=== PATIENT | female | born 1950 | race Caucasian/White ===

== ENCOUNTER → 2016-05-15 | Outpatient (CLI) | payer BC | END | disposition home or self-care (01) | LOC: C.PAPS 14:24 | PROVIDERS: ATTEND Internal Medicine | DX: Z01.419 Encounter for gynecological examination (general) (routine) without abnormal findings (principal); N72 Inflammatory disease of cervix uteri ==

== ENCOUNTER → 2016-09-08 | Outpatient (CLI) | payer BC ==
[2016-09-08 10:25] LABS: ESTIMATED AVERAGE GLUCOSE 114 mg/dl; HA1C FLAG Normal (Normal)
[2016-09-08 10:30] LABS: ALT/SGPT 21 U/L (12-78); AST/SGOT 12 U/L (15-37); BLOOD UREA NITROGEN 17 mg/dl (7-18); CALCIUM 8.6 mg/dl (8.5-10.1); CARBON DIOXIDE 27 mmol/L (21-32); CHLORIDE 110 mmol/L (98-107); CREATININE 0.71 mg/dl (0.60-1.20); GLUCOSE 101 mg/dl (70-99); POTASSIUM 3.9 mmol/L (3.5-5.1); SODIUM 143 mmol/L (136-145)
[2016-09-08 10:41] LABS: ALB/GLOB RATIO 1.3 (0.9-2); ALKALINE PHOSPHATASE 83 U/L (45-117); CHOLESTEROL 163 mg/dl (0-200); CHOLESTEROL/HDL RATIO 2.7; HDL CHOLESTEROL 61 mg/dl; LDL CHOLESTEROL CALCULATED 89 mg/dl; TRIGLYCERIDES 65 mg/dl (0-150); VERY LOW DENSITY LIPOPROT CALC 13 mg/dl
[2016-09-08 11:08] LABS: RATIO 7.2 mcg/mg (0-30.0)
== END | disposition home or self-care (01) ==
LOC: C.LAB1850 08:54
PROVIDERS: ATTEND Internal Medicine
DX: E11.9 Type 2 diabetes mellitus without complications (principal); R09.1 Pleurisy

== ENCOUNTER → 2017-03-15 | Outpatient (CLI) | payer BC ==
[2017-03-15 12:23] LABS: ALT/SGPT 22 U/L (12-78); AST/SGOT 18 U/L (15-37); BLOOD UREA NITROGEN 18 mg/dl (7-18); BUN/CREATININE RATIO 21.6 (10-20); CALCIUM 9.2 mg/dl (8.5-10.1); CARBON DIOXIDE 29 mmol/L (21-32); CHLORIDE 103 mmol/L (98-107); CREATININE 0.84 mg/dl (0.60-1.20); GLUCOSE 87 mg/dl (70-99); POTASSIUM 3.7 mmol/L (3.5-5.1); SODIUM 140 mmol/L (136-145)
[2017-03-15 12:25] LABS: ALB/GLOB RATIO 1.2 (0.9-2); ALKALINE PHOSPHATASE 76 U/L (45-117)
[2017-03-15 12:41] LABS: ESTIMATED AVERAGE GLUCOSE 114 mg/dl; HA1C FLAG Normal (Normal)
[2017-03-15 13:47] LABS: CREATININE RANDOM URINE 69.7 mg/dl
[2017-03-15 13:59] LABS: RATIO 7.5 mcg/mg (0-30.0)
== END | disposition home or self-care (01) ==
LOC: C.LAB1850 11:00
PROVIDERS: ATTEND Internal Medicine
DX: E11.9 Type 2 diabetes mellitus without complications (principal)

== ENCOUNTER → 2017-06-01 | Outpatient (CLI) | payer OTHER | END | disposition home or self-care (01) | LOC: C.MAMM 11:13 | PROVIDERS: ATTEND Internal Medicine | DX: Z00.00 Encounter for general adult medical examination without abnormal findings (principal); Z13.820 Encounter for screening for osteoporosis; M85.88 Other specified disorders of bone density and structure, other site; M85.852 Other specified disorders of bone density and structure, left thigh; M85.851 Other specified disorders of bone density and structure, right thigh ==

== ENCOUNTER 2018-06-01 02:52 | Inpatient (IN) ==
[2018-06-01] MEDS ORDERED: ASPIRIN CHEW 324 MG PO STA (03:07)
[2018-06-01] MEDS ORDERED: NITROGLYCERIN SL 0.4 MG/TAB TAB SL STA ×3 (03:07→03:53)
--- NOTE | 2018-06-01 03:12 | Emergency Department Note ---
ED Provider Note Name: Maria Farfan Age: 68F Arrives Via: POV Informant: Pt, CC: Chest pain HPI: 68 female arrives for evaluation of chest pain. Awoke from sleep with left sided pain. Radiates to left neck and shoulderblade. Pressure in nature. Mild associated shob. No palpitations, nausea, vomiting, syncope. No previous pain like this. Pain waxing/waning. Nothing makes better nor worse. No medications prior to arrival. History of DMII with well controlled BSG. No history HTN, DLP, CAD, nor other medical issues. No previous cardiac work-up. No fam history of CAD. Father with PEs in past. Patient with travel a few weeks ago. No leg swelling, abdominal pain, calf pain, back pain, urianry symptoms, weakness, headache, rashes, fevers, chills, nor other symptoms ROS: See above HPI for pertinent positives & negatives. A total of 10 systems reviewed and were otherwise negative. Past Medical History: DMII Past Surgical History: Tubal Ligation, Csection, Finger surgeries Family History: Father with PEs Social History: , Retired, Daily glass of wine, no drug, no tobacco Home Medications: Metformin Allergies NKDA Physical: Vitals: 167/94, P 92, R 20, T 37.0, O2 98% Exam: GENERAL: Patient is Anxious appearing and in no acute distress. EYES: No scleral icterus, unremarkable pupils. ENT: Mucous membranes moist, no nasal congestion. NECK: No masses appreciated, no meningismus, trachea is midline. RESPIRATORY: No dyspnea. Clear to auscultation and equal bilaterally. No wheeze , no rhonchi. CARDIOVASCULAR: Regular rate and rhythm. No murmurs, rubs, gallops appreciated. GASTROINTESTINAL: Abdomen soft, non-tender, no peritonitis. Bowel sounds positive. No masses appreciated. BACK: No midline tenderness, no CVA tenderness EXTREMITIES: Normal motion all extremities, no cyanosis, no edema. NEUROLOGIC: Alert and oriented, no acute motor or sensory deficits, no focal weakness, cranial nerves grossly intact. SKIN: No rash, no jaundice, no diaphoresis. ED Course: Prior Medical Record, Triage/Nursing Notes, Medications, Allergies reviewed by Me Vital Signs: reviewed and remarkable for HTN Labs: Reviewed and remarkable for mild dimer elevation Interventions: Saline Lock, Asa 324mg PO, SLNTG x 3, Nitro Paste Imaging: X ray results are stated below per my interpretation: Chest: 1 view: No infiltrate, no effusion, normal cardiac border. CT Chest: multiple granulomas throughout, no PE, no dissection per Stat Rad EKG: Per My Interpretation: #1 02:59:NSR [id number], lateral ST depressions, no ectopy, no previous for comparison #2 03:26 NSR 82 bpm no ectopy no sichemia, resolution of lateral st depressions compared to earlier ekg Consults: Dr Singleton [facility]ist Reassessments/Times: Multiple times, gradually resolution of chest pain Blood pressure: Elevated - Referred to hospitalist Disposition: Hospitalization Differentials: ACS, Arrythmia, PE, dissection, pneumothorax, pneumonia, esophageal/gerd, amongst other pathologies. Medical Decision Makin yr old female with history of DMII who arrives with left chest pain radiating to left neck and shoulder. No shob, fevers, chills. EKG with lateral ST depressions. Resolved with SLNTG x 3. ASA given. Trop initially negative. She has mild dimer elevation (done as father with PEs and she had recent travel) thus CT chest done. Granulomas noted (which she is aware due to Histo decades ago). No PE nor dissection. Suspect this is Unstable angina given her symptoms. Reviewed with hospitalists who will evalaute further and will manage heparin in patient. Impression: Unstable Angina Clay Li MD Impression & Plan Unstable angina Past Med/Surg History Social History Current Living Situation: Spouse Other Information That Helps Us Care for You: No Feels Safe at Home: Yes Safety Concerns: Feels Safe At This Time Smoking Status: Never smoker Hx Alcohol Use: Yes Alcohol type: wine Alcohol Intake Frequency: 0-2 drinks per day Hx Substance Use: No Beliefs That Will Affect Care: None Preferred Language: Bangladeshi Communication Ability: Effective Public Relations Counselor Required: No Results & Data Vital Signs Vital Signs - 24 hr 06/01/18 02:54 06/01/18 03:15 06/01/18 03:21 Temperature 37.0 C Temperature Source Oral Sepsis Action Taken by Nursing No Action Required Pulse Rate 92 H Pulse Rate [Finger] 83 88 Pulse Rhythm [Finger] Pulse Strength [Finger] Respiratory Rate 20 18 18 Respiratory Effort / Characteristics Respiratory Depth Normal Respiratory Pattern Blood Pressure 167/94 H Blood Pressure [Left Arm] 149/87 H 118/78 Blood Pressure Mean 118 Blood Pressure Mean [Left Arm] 107 91 Blood Pressure Position [Left Arm] Pulse Oximetry 98 97 96 Oxygen Delivery Method Room Air Room Air Room Air 06/01/18 03:30 06/01/18 03:38 06/01/18 03:55 Temperature Temperature Source Sepsis Action Taken by Nursing Pulse Rate Pulse Rate [Finger] 86 87 81 Pulse Rhythm [Finger] Pulse Strength [Finger] Respiratory Rate 18 18 18 Respiratory Effort / Characteristics Respiratory Depth Respiratory Pattern Blood Pressure Blood Pressure [Left Arm] 123/71 116/75 107/67 Blood Pressure Mean Blood Pressure Mean [Left Arm] 88 88 80 Blood Pressure Position [Left Arm] Pulse Oximetry 95 94 94 Oxygen Delivery Method Room Air Room Air Room Air 06/01/18 04:03 06/01/18 04:50 06/01/18 06:02 Temperature Temperature Source Sepsis Action Taken by Nursing Pulse Rate Pulse Rate [Finger] 88 81 71 Pulse Rhythm [Finger] Pulse Strength [Finger] Respiratory Rate 18 18 18 Respiratory Effort / Characteristics Respiratory Depth Respiratory Pattern Blood Pressure Blood Pressure [Left Arm] 108/66 136/62 103/64 Blood Pressure Mean Blood Pressure Mean [Left Arm] 80 86 77 Blood Pressure Position [Left Arm] Pulse Oximetry 93 96 97 Oxygen Delivery Method Room Air Room Air Room Air 06/01/18 06:37 Temperature 36.5 C Temperature Source Oral Sepsis Action Taken by Nursing Pulse Rate Pulse Rate [Finger] 83 Pulse Rhythm [Finger] Regular Pulse Strength [Finger] Normal Respiratory Rate 16 Respiratory Effort / Characteristics Non-Labored Respiratory Depth Normal Respiratory Pattern Regular Blood Pressure Blood Pressure [Left Arm] 138/79 Blood Pressure Mean Blood Pressure Mean [Left Arm] 98 Blood Pressure Position [Left Arm] Lying Pulse Oximetry 97 Oxygen Delivery Method Room Air Laboratory Data Result diagrams: 06/01/18 03:02 06/01/18 03:02 Lab Results 06/01/18 06/01/18 06/01/18 Range/Units 03:02 03:02 03:02 WBC 10.71 (4.8-10.8) K/uL RBC 4.41 (4.2-5.4) M/uL Hgb 14.2 (12.0-16.0) g/dL Hct 43.1 (37-47) % MCV 97.7 (80-100) fL MCH 32.2 (25-34) pg MCHC 32.9 (32-36) g/dL RDW Std Deviation 44.7 (36.4-46.3) fL RDW Coeff of Jose 12.5 (11.5-14.5) % Plt Count 241 (130-400) K/uL MPV 9.4 (7.4-10.4) fL Immature Gran % (Auto) 0.3 % Neut % (Auto) 56.2 % Lymph % (Auto) 33.5 % Treasure % (Auto) 8.4 % Eos % (Auto) 1.3 % Baso % (Auto) 0.3 % Immature Gran # (Auto) 0.03 H (0.00-0.02) K/uL Neut # (Auto) 6.02 (1.4-6.5) K/uL Lymph # (Auto) 3.59 H (1.2-3.4) K/uL Treasure # (Auto) 0.90 H (0.11-0.59) K/uL Eos # (Auto) 0.14 (0-0.5) K/uL Baso # (Auto) 0.03 (0-0.2) K/uL PT (9.0-12.0) Seconds INR (0.9-1.1) APTT (21.0-31.0) Seconds PTT Ratio D-Dimer 670 H* (0-500) ug/L FEU Sodium 139 (136-145) mmol/L Potassium 3.8 (3.5-5.1) mmol/L Chloride 106 (98-107) mmol/L Carbon Dioxide 29 (21-32) mmol/L Anion Gap 4.0 (3-11) BUN 15 (7-18) mg/dl Creatinine 0.75 (0.6-1.2) mg/dl Est Cr Clr Drug Dosing 4.7 ml/min Est GFR ( Amer) 96.3 Est GFR (Non-Af Amer) 83.1 BUN/Creatinine Ratio 19.6 (10-20) Glucose 124 H (70-99) mg/dl POC Glucose (70-99) Calcium 8.7 (8.5-10.1) mg/dl Troponin I < 0.015 (0-0.045) ng/ml 06/01/18 06/01/18 Range/Units 03:02 06:43 WBC (4.8-10.8) K/uL RBC (4.2-5.4) M/uL Hgb (12.0-16.0) g/dL Hct (37-47) % MCV (80-100) fL MCH (25-34) pg MCHC (32-36) g/dL RDW Std Deviation (36.4-46.3) fL RDW Coeff of Jose (11.5-14.5) % Plt Count (130-400) K/uL MPV (7.4-10.4) fL Immature Gran % (Auto) % Neut % (Auto) % Lymph % (Auto) % Treasure % (Auto) % Eos % (Auto) % Baso % (Auto) % Immature Gran # (Auto) (0.00-0.02) K/uL Neut # (Auto) (1.4-6.5) K/uL Lymph # (Auto) (1.2-3.4) K/uL Treasure # (Auto) (0.11-0.59) K/uL Eos # (Auto) (0-0.5) K/uL Baso # (Auto) (0-0.2) K/uL PT 10.1 (9.0-12.0) Seconds INR 1.0 (0.9-1.1) APTT 28.8 (21.0-31.0) Seconds PTT Ratio 1.1 D-Dimer (0-500) ug/L FEU Sodium (136-145) mmol/L Potassium (3.5-5.1) mmol/L Chloride (98-107) mmol/L Carbon Dioxide (21-32) mmol/L Anion Gap (3-11) BUN (7-18) mg/dl Creatinine (0.6-1.2) mg/dl Est Cr Clr Drug Dosing ml/min Est GFR ( Amer) Est GFR (Non-Af Amer) BUN/Creatinine Ratio (10-20) Glucose (70-99) mg/dl POC Glucose 117 H (70-99) Calcium (8.5-10.1) mg/dl Troponin I (0-0.045) ng/ml Administered Medications Sodium Chloride (Nss 1000ml) 1,000 mls @ 125 mls/hr IV .Q8H ELISABETH Stop: 07/01/18 04:29 Last Admin: 02/06/19 04:33 Dose: 125 mls/hr Ioversol (Optiray 320 125ml) 125 ml IV ONCE PRN PRN Reason: Interaction Checking Stop: 06/05/18 04:51 Last Admin: 06/01/18 04:53 Dose: 88 ml Discontinued Medications Aspirin (Aspirin) 324 mg PO NOW STA Stop: 06/01/18 03:08 Last Admin: 06/01/18 03:17 Dose: 324 mg Heparin Sodium/Dextrose (Heparin Sodium/Dextrose) Confirm Administered Dose 25, 000 units IV .STK-MED ONE Stop: 06/01/18 05:58 Last Admin: 06/01/18 05:58 Dose: 13 ml Nitroglycerin (Nitrostat) 0.4 mg SL NOW STA Stop: 06/01/18 03:08 Last Admin: 06/01/18 03:17 Dose: 0.4 mg Nitroglycerin (Nitrostat) 0.4 mg SL NOW STA Stop: 06/01/18 03:26 Last Admin: 06/01/18 03:29 Dose: 0.4 mg Nitroglycerin (Nitrostat) 0.4 mg SL NOW STA Stop: 06/01/18 03:54 Last Admin: 06/01/18 03:56 Dose: 0.4 mg Nitroglycerin (Nitro-Bid 2%) 1 inch EXT NOW ONE Stop: 06/01/18 04:30 Last Admin: 06/01/18 04:33 Dose: 1 inch Discharge Plan Visit Data Chief Complaint: Chest Pain Stated Complaint: CHEST PAIN,LT SHOULDER AND NECK PAIN ED Provider: Clay Li Discharge Problem: Unstable angina Discharge Instructions Interventions: ED Discharge Assessment Last Done: 06/01/18 06:15
[2018-06-01 03:51] LABS: Basophils # (auto) 0.03 K/uL (0-0.2); Basophils % (auto) 0.3 %; Eosinophils # (auto) 0.14 K/uL (0-0.5); Eosinophils % (auto) 1.3 %; Hematocrit (blood only) 43.1 % (37-47); Hemoglobin 14.2 g/dL (12.0-16.0); Immature Granulocytes # (auto) 0.03 K/uL (0.00-0.02); Immature Granulocytes % (auto) 0.3 %; Lymphocytes # (auto) 3.59 K/uL (1.2-3.4); Lymphocytes % (auto) 33.5 %; Mean Corpuscular Hgb Conc 32.9 g/dL (32-36); Mean Corpuscular Volume 97.7 fL (80-100); Mean Platelet Volume 9.4 fL (7.4-10.4); Monocytes % (auto) 8.4 %; Neutrophils # (auto) 6.02 K/uL (1.4-6.5); Neutrophils % (auto) 56.2 %; Platelet Count 241 K/uL (130-400); RDW Coefficient of Variation 12.5 % (11.5-14.5); RDW Standard Deviation 44.7 fL (36.4-46.3); Red Blood Count 4.41 M/uL (4.2-5.4); White Blood Count 10.71 K/uL (4.8-10.8)
[2018-06-01 03:58] LABS: BUN Creatinine Ratio 19.6 (10-20); Blood Urea Nitrogen 15 mg/dl (7-18); Calcium 8.7 mg/dl (8.5-10.1); Carbon Dioxide 29 mmol/L (21-32); Chloride 106 mmol/L (98-107); Creatinine Clr Calc Pharmacy 4.7 ml/min; Est GFR (African American) 96.3; Est GFR (Non-African American) 83.1; Glucose 124 mg/dl (70-99); Potassium 3.8 mmol/L (3.5-5.1); Sodium 139 mmol/L (136-145)
[2018-06-01 04:04] LABS: Troponin I < 0.015 ng/ml (0-0.045)
[2018-06-01] MEDS ORDERED: NITROGLYCERIN 2% OINTMENT 30GM TUBE EXT ONE (04:29)
[2018-06-01] MEDS ORDERED: SODIUM CHLORIDE 0.9% 1000ML 1,000 ML IV SCH (04:30)
[2018-06-01 04:41] LABS: Partial Thromboplastin Ratio 1.1; Partial Thromboplastin Time 28.8 Seconds (21.0-31.0); Prothrombin Time 10.1 Seconds (9.0-12.0)
[2018-06-01] MEDS ORDERED: OPTIRAY 320 125ml IV PRN (04:52)
--- NOTE | 2018-06-01 04:56 | History & Physical Report ---
Date of Service June 01, 2018 Assessment & Plan (1) Unstable angina: 68-year-old female PMH T2DM who presents with chest pain, says she awoke from sleep at 2 AM with left-sided pain in her chest that radiated to her left neck and shoulder blade. Characterizes it as a pressure, like a charley horse. Lasted at least 1 hour. Constant. Made worse with deep breathing. Denies dyspnea on exertion, chest pain with exertion, syncope, diaphoresis. Patient is an avid hiker and exercises regularly. Patient has well-controlled diabetes , last A1c was less than 6. Family history positive for clots/PE and CVA in father. ED course: Nitroglycerin paste with good effect. Reversible ischemic changes noted on repeat EKG. Also given aspirin 324 mg p.o. Initial troponin negative. H&H normal, BMP unremarkable except for blood glucose 124. CTA of the chest shows no pulmonary embolism or effusion. Old granulomatous in the right lobe. 10 mm nodule in the thyroid, recommend outpatient ultrasound follow-up. Unstable angina -As evidenced by substernal left-sided chest pain at rest with radiation to the neck and shoulder, with ST depression in lateral leads, and reversible ischemic changes on EKG after administration of nitro, suggestive of ACS. -Sublingual nitroglycerin x 3, with 1 inch of Nitropaste administered, persistent achiness in left chest. Plan -CTA ruled out PE -Low-dose heparin drip begun (no bolus) -Consult cardiology -Echo -Lipids, A1c pending FEN/GI: N.p.o., normal saline at 125 mL's per hour DVT ppx: Heparin drip low-dose no bolus begun CODE STATUS: Full code DISPO: Telemetry Other ongoing medical problems: Thyroid nodule -10 mm, incidental finding on CTA of the chest -Recommend outpatient ultrasound follow-up nonurgently Type 2 diabetes -Diagnosed in 2011, on metformin -Last A1c in the fall was less than 6. -Hold home metformin 500 mg daily -ISS Zhanna Smallwood MD [employer] Partner (2) Type 2 diabetes mellitus: (3) Chest pain: (4) Thyroid nodule: History of Present Illness Primary Care Provider: Christian Doherty MD 68-year-old female who presents with chest pain, says she awoke from sleep at 2 AM with left-sided pain in her chest that radiated to her left neck and shoulder blade. Characterizes it as a pressure, like a charley horse. Lasted at least 1 hour. Constant. Denies dyspnea on exertion, chest pain with exertion. Patient is an avid hiker and exercises regularly. Patient has well- controlled diabetes, last A1c was less than 6. ED course: Nitroglycerin paste with good effect. Reversible ischemic changes noted on repeat EKG. Also given aspirin 324 mg p.o. Initial troponin negative. H&H normal, BMP unremarkable except for blood glucose 124. CTA of the chest shows no pulmonary embolism or effusion. Old granulomatous in the right lobe. 10 mm nodule in the thyroid, recommend outpatient ultrasound follow-up. PMH 1. Arthritis 2. Type 2 diabetes 3. Osteopenia PSH 1. Cataract surgery 2. section 3. Oral surgery Family history: Fatherblood clots, CVAfather, endometrial cancermother Social history: Retired. Denies tobacco,drug use. 1-2 glasses of wine per day. Allergies Allergy/AdvReac Type Severity Reaction Status Date / Time rabbit dander Allergy Sneezing Verified 06/01/18 04:08 corn husk Allergy Sneezing Uncoded 06/01/18 04:08 Home Medications Home Medications Medication Instructions Recorded Confirmed Type calcium carbonate [Calcium 600] 600 mg PO DAILY 06/01/18 06/01/18 History cyanocobalamin (vitamin B-12) 1,000 mcg PO DAILY 06/01/18 06/01/18 History [Vitamin B-12] metformin 500 mg PO DAILY 06/01/18 06/01/18 History Past Med/Surg History Social History Current Living Situation: Spouse Other Information That Helps Us Care for You: No Feels Safe at Home: Yes Safety Concerns: Feels Safe At This Time Smoking Status: Never smoker Hx Alcohol Use: Yes Alcohol type: wine Alcohol Intake Frequency: 0-2 drinks per day Hx Substance Use: No Beliefs That Will Affect Care: None Preferred Language: French Review of Systems All systems reviewed & are unremarkable except as noted in HPI & below Physical Exam 2 Vital Signs (Past 24 Hours): Last Vital Signs Temp 37.0 C 06/01/18 02:54 Pulse 88 06/01/18 04:03 Resp 18 06/01/18 04:03 BP 108/66 06/01/18 04:03 Pulse Ox 93 06/01/18 04:03 Physical Exam: Vitals noted as above and [within normal limits] [with the exception of] []. GENERAL: Awake, alert to person, place, and time, nontoxic-appearing, in no distress HENT: Normocephalic, atraumatic. Mucus membranes appear moist. EYES: Normal conjunctiva. Sclera non-icteric. EOMI. NECK: Supple. Full range of motion. No JVD RESPIRATORY: Clear to auscultation. Normal work of breathing. CARDIAC: Regular rate, normal rhythm. Extremities warm and well perfused, 2+ radial pulses bilaterally; 2+ posterior tibialis pulses bilaterally. ABDOMEN: Soft, non-distended. No tenderness to palpation in all four quadrants. No rebound or guarding. No masses. Bowel sounds are normal. LOWER EXTREMITIES: Inspection of calves reveal equal size bilaterally. They are non-tender. No edema. No discoloration. NEURO: No focal gross focal motor deficits noted. Sensation in tact. CN II-XII grossly in tact. SKIN: Rash not present. No jaundice noted. Significant lesions not present. PSYCH: Appropriate mood and affect. Cooperative. Exam as done by Zhanna Smallwood MD, [employer]. Results & Data Laboratory Results 06/01/18 06/01/18 06/01/18 Range/Units 03:02 03:02 03:02 WBC (4.8-10.8) K/uL RBC (4.2-5.4) M/uL Hgb (12.0-16.0) g/dL Hct (37-47) % MCV (80-100) fL MCH (25-34) pg MCHC (32-36) g/dL RDW Std Deviation (36.4-46.3) fL RDW Coeff of Jose (11.5-14.5) % Plt Count (130-400) K/uL MPV (7.4-10.4) fL Immature Gran % (Auto) % Neut % (Auto) % Lymph % (Auto) % Shannon % (Auto) % Eos % (Auto) % Baso % (Auto) % Immature Gran # (Auto) (0.00-0.02) K/uL Neut # (Auto) (1.4-6.5) K/uL Lymph # (Auto) (1.2-3.4) K/uL Shannon # (Auto) (0.11-0.59) K/uL Eos # (Auto) (0-0.5) K/uL Baso # (Auto) (0-0.2) K/uL PT 10.1 (9.0-12.0) Seconds INR 1.0 (0.9-1.1) APTT 28.8 (21.0-31.0) Seconds PTT Ratio 1.1 D-Dimer 670 H* (0-500) ug/L FEU Sodium 139 (136-145) mmol/L Potassium 3.8 (3.5-5.1) mmol/L Chloride 106 (98-107) mmol/L Carbon Dioxide 29 (21-32) mmol/L Anion Gap 4.0 (3-11) BUN 15 (7-18) mg/dl Creatinine 0.75 (0.6-1.2) mg/dl Est Cr Clr Drug Dosing 4.7 ml/min Est GFR ( Amer) 96.3 Est GFR (Non-Af Amer) 83.1 BUN/Creatinine Ratio 19.6 (10-20) Glucose 124 H (70-99) mg/dl Calcium 8.7 (8.5-10.1) mg/dl Troponin I < 0.015 (0-0.045) ng/ml 06/01/18 Range/Units 03:02 WBC 10.71 (4.8-10.8) K/uL RBC 4.41 (4.2-5.4) M/uL Hgb 14.2 (12.0-16.0) g/dL Hct 43.1 (37-47) % MCV 97.7 (80-100) fL MCH 32.2 (25-34) pg MCHC 32.9 (32-36) g/dL RDW Std Deviation 44.7 (36.4-46.3) fL RDW Coeff of Jose 12.5 (11.5-14.5) % Plt Count 241 (130-400) K/uL MPV 9.4 (7.4-10.4) fL Immature Gran % (Auto) 0.3 % Neut % (Auto) 56.2 % Lymph % (Auto) 33.5 % Shannon % (Auto) 8.4 % Eos % (Auto) 1.3 % Baso % (Auto) 0.3 % Immature Gran # (Auto) 0.03 H (0.00-0.02) K/uL Neut # (Auto) 6.02 (1.4-6.5) K/uL Lymph # (Auto) 3.59 H (1.2-3.4) K/uL Shannon # (Auto) 0.90 H (0.11-0.59) K/uL Eos # (Auto) 0.14 (0-0.5) K/uL Baso # (Auto) 0.03 (0-0.2) K/uL PT (9.0-12.0) Seconds INR (0.9-1.1) APTT (21.0-31.0) Seconds PTT Ratio D-Dimer (0-500) ug/L FEU Sodium (136-145) mmol/L Potassium (3.5-5.1) mmol/L Chloride (98-107) mmol/L Carbon Dioxide (21-32) mmol/L Anion Gap (3-11) BUN (7-18) mg/dl Creatinine (0.6-1.2) mg/dl Est Cr Clr Drug Dosing ml/min Est GFR ( Amer) Est GFR (Non-Af Amer) BUN/Creatinine Ratio (10-20) Glucose (70-99) mg/dl Calcium (8.5-10.1) mg/dl Troponin I (0-0.045) ng/ml Code Status & VTE Plan Code Status FULL Supervising Physician Co-Signing Physician Notes Attending addendum: I have physically seen this patient, have supervised the medical residents activities, and agree with the H&P unless as otherwise noted. Assessment and Plan: Unstable angina/persistent the chest discomfort in spite of addition of aspirin and Nitropaste and following sublingual nitroglycerin. Reversible lateral EKG changes noted. The patient will be admitted to telemetry for serial cardiac enzymes, serial EKG's, cardiac rhythm monitoring and a 2-D echocardiogram with Dopplers. Starting heparin without bolus. Consult cardiology. Check a fasting lipid panel and hemoglobin A1c for further risk stratification. Remainder of orders and notations as noted. Resident Activity Tracking Resident Involvement: Resident Care Provided Care Provided: [facility] Medicine
[2018-06-01] MEDS ORDERED: Heparin IV Low Dose *NO* Bolus IV SCH (05:28)
[2018-06-01] MEDS ORDERED: HEPARIN 25000 UNIT/500 ML D5W IV ONE (05:57)
[2018-06-01] MEDS ORDERED: DEXTROSE 50% 50 ML SYRINGE IV PRN (06:37)
[2018-06-01] MEDS ORDERED: ACETAMINOPHEN 325 MG TAB PO PRN (06:37)
[2018-06-01] MEDS ORDERED: NITROGLYCERIN SL 0.4 MG/TAB TAB SL PRN (06:37)
[2018-06-01] MEDS ORDERED: GLUCAGON FOR INJ 1 MG VIAL SQ PRN (06:37)
[2018-06-01] MEDS ORDERED: CARBOHYDRATES FOR HYPOGLYCEMIA PO PRN (06:37)
[2018-06-01] MEDS ORDERED: GLUCOSE 40% GEL 15 GM TUBE PO PRN (06:37)
[2018-06-01] MEDS ORDERED: POTASSIUM CHLORIDE 20 MEQ TABCR PO STA (06:37)
[2018-06-01] MEDS ORDERED: GLUCOSE 10 TABS/TUBE PO PRN (06:37)
[2018-06-01] MEDS ORDERED: HEPARIN LOW DOSE DEXTROSE 25,000 UNITS/500 ML IV SCH (06:53)
--- NOTE | 2018-06-01 07:02 | CT Scan Report ---
CT angio chest PE protocol CT DOSE: 182.58 mGy.cm HISTORY: 68 years-old Female with PE. Acute shortness of breath with chest pain TECHNIQUE: Multiple CTA images of the chest were obtained after the intravenous administration of 88 ml Optiray 320. Coronal and sagittal MIPS were obtained from the axial data set and were submitted f or review. All measurements were obtained according to NASCET criteria. A dose lowering technique wa s utilized adhering to the principles of ALARA. COMPARISON: Chest radiograph of same day. FINDINGS: CTA: Heart is normal in size without pericardial effusion. The thoracic aorta demonstrates no aneurysm or dissection. Patency of the imaged great vessels. The pulmonary arterial tree is opacified to level of the proximal subsegmental branches and demonstrates no focal filling defects suggest pulmonary throm boembolic disease. CT CHEST: Multinodular thyroid goiter with nodules measuring up to 10 mm on the right. No adenopathy by CT size criteria. Mildly prominent subcarinal and AP window lymph nodes are likely on a physiologic basis. There is no pneumothorax or pleural effusion. Patchy consolidative and groundglass opacities are note d about the lingula and right middle lobe. Mild dependent subsegmental bibasilar atelectasis. Calcifi ed granuloma of the right upper lobe. Central airways appear patent. No acute process of the imaged upper abdomen. 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 Soft tissues and breast parenchyma appear unremarkable. Bones appear intact. Degener ative changes of the shoulders and spine. IMPRESSION: 1. No acute aortic pathology or evidence of pulmonary thromboembolic disease. 2. Patchy groundglass and consolidative opacities about the lingula and right middle lobe are suggest camelia of multifocal pneumonia. 3. No pleural effusion or adenopathy. The above report was generated using voice recognition software. It may contain grammatical, syntax o r spelling errors. Electronically signed by: Chris Castro M.D. 06/01/2018 7:01 AM
--- NOTE | 2018-06-01 07:16 | XRay Report ---
SINGLE VIEW CHEST CLINICAL HISTORY: Atypical chest pain. FINDINGS: An AP, portable, upright chest radiograph is compared to study dated 06/21/2007. Correlation is made with today's chest CT dated 06/01/2018. The examination is degraded by portable technique and patient rotation. The heart is top normal in size. The pulmonary vasculature is noncongested. There are scattered calcified granulomas. A 2.3 cm nodular density is noted the right lung base. This corre sponds to atelectasis/scarring when correlated with today's chest CT. No airspace consolidation or la rge pleural effusion is identified. Bibasilar atelectasis is observed. No pneumothorax is seen. The s keletal structures are osteopenic. The bony thorax is grossly intact. IMPRESSION: No acute cardiopulmonary abnormality. Electronically signed by: Mir Langley M.D. 06/01/2018 7:15 AM
[2018-06-01] MEDS ORDERED: INSULIN ASPART 100 UNITS/ML 3 ML PEN SC SCH (07:30)
--- NOTE | 2018-06-01 07:54 | Hospitalist Progress Note ---
Date of Service June 01, 2018 Assessment & Plan (1) Unstable angina: 68-year-old female PMH T2DM who presents with chest pain, says she awoke from sleep at 2 AM with left-sided pain in her chest that radiated to her left neck and shoulder blade. Characterizes it as a pressure, like a charley horse. Lasted at least 1 hour. Constant. Made worse with deep breathing. Denies dyspnea on exertion, chest pain with exertion, syncope, diaphoresis. Patient is an avid hiker and exercises regularly. Patient has well-controlled diabetes , last A1c was less than 6. Family history positive for clots/PE and CVA in father. ED course: Nitroglycerin paste Reversible lateral t wave changes noted on repeat EKG. Also given aspirin 324 mg p.o. Initial troponin negative. H&H normal, BMP unremarkable CTA of the chest shows no pulmonary embolism or effusion. Old granulomatous in the right lobe. 10 mm nodule in the thyroid, recommend outpatient ultrasound follow-up. Unstable angina -As evidenced by substernal left-sided chest pain at rest with radiation to the neck and shoulder, with ST depression in lateral leads, and reversible ischemic changes on EKG resolved after administration of nitro, -CTA ruled out PE -Low-dose heparin drip begun (no bolus) -Consult cardiology -Echo pending DVT ppx: Heparin drip low-dose no bolus begun CODE STATUS: Full code DISPO: Telemetry Other ongoing medical problems: Thyroid nodule -10 mm, incidental finding on CTA of the chest -Recommend outpatient ultrasound follow-up nonurgently Type 2 diabetes -Diagnosed in 2011, on metformin -Last A1c in the fall was less than 6. -Hold home metformin 500 mg daily -ISS (2) Type 2 diabetes mellitus: (3) Chest pain: (4) Thyroid nodule: Physical Exam 2 Vital Signs (Past 24 Hours): Last Vital Signs Temp 36.5 C 06/01/18 06:37 Pulse 83 06/01/18 06:37 Resp 16 06/01/18 06:37 BP 138/79 06/01/18 06:37 Pulse Ox 97 06/01/18 06:37
[2018-06-01 08:31] LABS: Basophils # (auto) 0.02 K/uL (0-0.2); Basophils % (auto) 0.2 %; Eosinophils # (auto) 0.05 K/uL (0-0.5); Eosinophils % (auto) 0.5 %; Hematocrit (blood only) 39.2 % (37-47); Hemoglobin 12.8 g/dL (12.0-16.0); Immature Granulocytes # (auto) 0.02 K/uL (0.00-0.02); Immature Granulocytes % (auto) 0.2 %; Lymphocytes # (auto) 2.69 K/uL (1.2-3.4); Lymphocytes % (auto) 26.2 %; Mean Corpuscular Hgb Conc 32.7 g/dL (32-36); Mean Corpuscular Volume 96.8 fL (80-100); Mean Platelet Volume 9.1 fL (7.4-10.4); Monocytes % (auto) 5.9 %; Neutrophils # (auto) 6.87 K/uL (1.4-6.5); Platelet Count 189 K/uL (130-400); RDW Coefficient of Variation 12.4 % (11.5-14.5); RDW Standard Deviation 43.9 fL (36.4-46.3); Red Blood Count 4.05 M/uL (4.2-5.4); White Blood Count 10.25 K/uL (4.8-10.8)
[2018-06-01 08:44] LABS: Partial Thromboplastin Ratio 1.3; Prothrombin Time 10.4 Seconds (9.0-12.0)
[2018-06-01] MEDS ORDERED: ASPIRIN 81 MG ECTAB PO SCH (09:00)
[2018-06-01 09:05] LABS: Albumin Level 3.1 gm/dl (3.4-5.0); BUN Creatinine Ratio 18.1 (10-20); Calcium 8.3 mg/dl (8.5-10.1); Est GFR (African American) 109.5; Est GFR (Non-African American) 94.5; Magnesium 2.1 mg/dl (1.8-2.4); Potassium 3.7 mmol/L (3.5-5.1)
[2018-06-01 09:08] LABS: Bilirubin,Total 0.8 mg/dl (0.2-1); Globulin 3.1 gm/dl (2.5-4.0); Total Protein 6.2 gm/dl (6.4-8.2)
[2018-06-01 09:13] LABS: Estimated Average Glucose 126 mg/dl
--- NOTE | 2018-06-01 10:58 | Cardiology Consultation ---
Date of Consultation June 01, 2018 Assessment & Plan (1) Chest pain: Discussed with Dr. Merino. Patient with no prior cardiac history who presented with left sided chest/ shoulder discomfort which woke her up from sleep around 2 am. Her symptoms improved with nitroglycerin but her chest pain has never completely resolved. She has had constant chest pain for greater than 8 hours and troponin undetectable x2. Her EKGs demonstrate nonspecific changes but no ST elevation. Her echo shows normal LV function and wall motion. It is less likely this represents acute coronary syndrome. Recommend noninvasive ischemic workup with stress echo which will be performed later this morning. Patient recently had two rounds of antibiotics for a cough, pain has a pleuritic component and CTA suggests pneumonia. Symptoms may be due to pleurisy. (2) Type 2 diabetes mellitus: History of Present Illness Attending Physician: Ralph Alejandra MD History of Present Illness Mrs. Farfan is a 68 year old female with a medical history significant for type 2 DM on oral therapy. She has no history of cardiac disease. She was awoken at 2 am with left sided chest discomfort she describes as "clutching." She had radiation of pain into her left shoulder and neck which felt like a "rand horse." She had no associated diaphoresis, dyspnea or nausea. Her pain persisted so after about one hour she decided to seek medical attention. Her pain improved after her second nitroglycerin but has not completely resolved. She complains of an aching pain in the left side of her chest/shoulder. Her pain is worse with deep breathing and coughing. It is constant in nature and not positional. Her cardiac enzymes have been undetectable. Her EKG demonstrates nonspecific ST-T wave change but no ST elevation. Her chest CTA was negative for dissection or PE but suggests pneumonia. She had a cough in April and was treated with two courses of antibiotics by her PCP. She has a mild cough but reports it is significantly improved overall. She is typically active and enjoys hiking. Several weeks ago she was able to go on a 6 mile hike without exertional chest pain or limiting dyspnea. She denies shortness of breath, orthopnea, PND, edema, palpitations, lightheadedness, near syncope or syncope. No abdnormal bleeding. ROS: 10 point review of systems was negative unless stated in HPI. Family history: Father with PE. of CVA in 80s. Mother of leukemia. Negative for premature CAD or sudden . Social history: with two children and 3 grandchildren. Drinks 1-2 glasses of wine with dinner. No tobacco use. No drug use. Allergies Allergy/AdvReac Type Severity Reaction Status Date / Time rabbit dander Allergy Sneezing Verified 06/01/18 04:08 corn husk Allergy Sneezing Uncoded 06/01/18 04:08 Home Medications Home Medications Medication Instructions Recorded Confirmed Type calcium carbonate [Calcium 600] 600 mg PO DAILY 06/01/18 06/01/18 History cyanocobalamin (vitamin B-12) 1,000 mcg PO DAILY 06/01/18 06/01/18 History [Vitamin B-12] metformin 500 mg PO DAILY 06/01/18 06/01/18 History Patient History Social History Current Living Situation: Spouse Other Information That Helps Us Care for You: No Feels Safe at Home: Yes Safety Concerns: Feels Safe At This Time Smoking Status: Never smoker Hx Alcohol Use: Yes Alcohol type: wine Alcohol Intake Frequency: 0-2 drinks per day Hx Substance Use: No Beliefs That Will Affect Care: None Preferred Language: French Communication Ability: Effective [employer] Manager Required: No Physical Exam 2 Vital Signs (Past 24 Hours): Last Vital Signs Temp 36.5 C 06/01/18 06:37 Pulse 83 06/01/18 06:37 Resp 16 06/01/18 06:37 BP 138/79 06/01/18 06:37 Pulse Ox 97 06/01/18 06:37 Physical Exam: General: No acute distress. HEENT: Head is normal. PERRLA. EOMI. Sclerae anicteric. Ears, nose and throat unremarkable. Mucous membranes moist. Neck: Normal carotid upstrokes, no bruits. No appreciable JVD. Lungs: Clear to auscultation bilaterally without rales, rhonchi or wheezes. Cardiac: Regular rate and rhythm. S1-S2 normal. No appreciable murmur, gallop or rub. No chest wall tenderness to palpation. Abdomen: Soft and nontender. Bowel sounds normal. No mass or organomegaly. No abdominal bruit. Extremities/vascular: Well perfused. No peripheral edema. Radial, DP and PT pulses 2+ bilaterally Skin: No rash or abnormal lesions. Normal turgor. Neurologic: Nonfocal Psychiatric: Affect appropriate. Alert and oriented. Results & Data Laboratory Results Laboratory Results - last 24 hr 06/01/18 06/01/18 06/01/18 03:02 03:02 03:02 WBC 10.71 RBC 4.41 Hgb 14.2 Hct 43.1 MCV 97.7 MCH 32.2 MCHC 32.9 RDW Std Deviation 44.7 RDW Coeff of Jose 12.5 Plt Count 241 MPV 9.4 Immature Gran % (Auto) 0.3 Neut % (Auto) 56.2 Lymph % (Auto) 33.5 [place] % (Auto) 8.4 Eos % (Auto) 1.3 Baso % (Auto) 0.3 Immature Gran # (Auto) 0.03 H Neut # (Auto) 6.02 Lymph # (Auto) 3.59 H [place] # (Auto) 0.90 H Eos # (Auto) 0.14 Baso # (Auto) 0.03 PT INR APTT PTT Ratio D-Dimer 670 H* Sodium 139 Potassium 3.8 Chloride 106 Carbon Dioxide 29 Anion Gap 4.0 BUN 15 Creatinine 0.75 Est Cr Clr Drug Dosing 4.7 Est GFR ( Amer) 96.3 Est GFR (Non-Af Amer) 83.1 BUN/Creatinine Ratio 19.6 Glucose 124 H POC Glucose Estimat Average Glucose Hemoglobin A1c Calcium 8.7 Magnesium Total Bilirubin AST ALT Alkaline Phosphatase Troponin I < 0.015 Total Protein Albumin Globulin Albumin/Globulin Ratio Triglycerides Cholesterol LDL Cholesterol, Calc VLDL Cholesterol, Calc HDL Cholesterol Cholesterol/HDL Ratio TSH 06/01/18 06/01/18 06/01/18 03:02 06:43 07:55 WBC 10.25 RBC 4.05 L Hgb 12.8 Hct 39.2 MCV 96.8 MCH 31.6 MCHC 32.7 RDW Std Deviation 43.9 RDW Coeff of Jose 12.4 Plt Count 189 MPV 9.1 Immature Gran % (Auto) 0.2 Neut % (Auto) 67.0 Lymph % (Auto) 26.2 [place] % (Auto) 5.9 Eos % (Auto) 0.5 Baso % (Auto) 0.2 Immature Gran # (Auto) 0.02 Neut # (Auto) 6.87 H Lymph # (Auto) 2.69 [place] # (Auto) 0.60 H Eos # (Auto) 0.05 Baso # (Auto) 0.02 PT 10.1 INR 1.0 APTT 28.8 PTT Ratio 1.1 D-Dimer Sodium Potassium Chloride Carbon Dioxide Anion Gap BUN Creatinine Est Cr Clr Drug Dosing Est GFR ( Amer) Est GFR (Non-Af Amer) BUN/Creatinine Ratio Glucose POC Glucose 117 H Estimat Average Glucose Hemoglobin A1c Calcium Magnesium Total Bilirubin AST ALT Alkaline Phosphatase Troponin I Total Protein Albumin Globulin Albumin/Globulin Ratio Triglycerides Cholesterol LDL Cholesterol, Calc VLDL Cholesterol, Calc HDL Cholesterol Cholesterol/HDL Ratio TSH 06/01/18 06/01/18 06/01/18 07:55 07:55 07:55 WBC RBC Hgb Hct MCV MCH MCHC RDW Std Deviation RDW Coeff of Jose Plt Count MPV Immature Gran % (Auto) Neut % (Auto) Lymph % (Auto) [place] % (Auto) Eos % (Auto) Baso % (Auto) Immature Gran # (Auto) Neut # (Auto) Lymph # (Auto) [place] # (Auto) Eos # (Auto) Baso # (Auto) PT 10.4 INR 1.0 APTT 33.0 H PTT Ratio 1.3 D-Dimer Sodium 141 Potassium 3.7 Chloride 109 H Carbon Dioxide 26 Anion Gap 6.0 BUN 11 Creatinine 0.61 Est Cr Clr Drug Dosing 75.0 Est GFR ( Amer) 109.5 Est GFR (Non-Af Amer) 94.5 BUN/Creatinine Ratio 18.1 Glucose 105 H POC Glucose Estimat Average Glucose 126 Hemoglobin A1c 6.0 H Calcium 8.3 L Magnesium 2.1 Total Bilirubin 0.8 AST 10 L ALT 15 Alkaline Phosphatase 82 Troponin I Total Protein 6.2 L Albumin 3.1 L Globulin 3.1 Albumin/Globulin Ratio 1.0 Triglycerides 42 Cholesterol 145 LDL Cholesterol, Calc 79 VLDL Cholesterol, Calc 8 HDL Cholesterol 58 Cholesterol/HDL Ratio 3 TSH 06/01/18 06/01/18 07:55 07:55 WBC RBC Hgb Hct MCV MCH MCHC RDW Std Deviation RDW Coeff of Jose Plt Count MPV Immature Gran % (Auto) Neut % (Auto) Lymph % (Auto) [place] % (Auto) Eos % (Auto) Baso % (Auto) Immature Gran # (Auto) Neut # (Auto) Lymph # (Auto) [place] # (Auto) Eos # (Auto) Baso # (Auto) PT INR APTT PTT Ratio D-Dimer Sodium Potassium Chloride Carbon Dioxide Anion Gap BUN Creatinine Est Cr Clr Drug Dosing Est GFR ( Amer) Est GFR (Non-Af Amer) BUN/Creatinine Ratio Glucose POC Glucose Estimat Average Glucose Hemoglobin A1c Calcium Magnesium Total Bilirubin AST ALT Alkaline Phosphatase Troponin I < 0.015 Total Protein Albumin Globulin Albumin/Globulin Ratio Triglycerides Cholesterol LDL Cholesterol, Calc VLDL Cholesterol, Calc HDL Cholesterol Cholesterol/HDL Ratio TSH 2.020 Diagnostic Findings Chest CTA: No acute aortic pathology or evidence of pulmonary thromboembolic disease. Patchy groundglass and consolidative opacities about the lingula and right middle lobe are suggestive of multifocal pneumonia. Echo: Normal LV size and function. EF 60-65%. Borderline LVH. No regional wall motion abnormalities. No significant valvular disease. ECG Additional Comments: EKGs reviewed: Sinus rhythm with nonspecific ST-T wave abnormality Telemetry reviewed: Sinus rhythm
[2018-06-01] MEDS ORDERED: PERFLUTREN LIPID MICROSPHERE (DEFINITY) IV ONE (11:27)
--- NOTE | 2018-06-01 14:51 | Discharge Summary ---
Date of Service June 01, 2018 Admission HPI Per Admitting Provider 68-year-old female who presents with chest pain, says she awoke from sleep at 2 AM with left-sided pain in her chest that radiated to her left neck and shoulder blade. Characterizes it as a pressure, like a charley horse. Lasted at least 1 hour. Constant. Denies dyspnea on exertion, chest pain with exertion. Patient is an avid hiker and exercises regularly. Patient has well- controlled diabetes, last A1c was less than 6. ED course: Nitroglycerin paste with good effect. Reversible ischemic changes noted on repeat EKG. Also given aspirin 324 mg p.o. Initial troponin negative. H&H normal, BMP unremarkable except for blood glucose 124. CTA of the chest shows no pulmonary embolism or effusion. Old granulomatous in the right lobe. 10 mm nodule in the thyroid, recommend outpatient ultrasound follow-up. PMH 1. Arthritis 2. Type 2 diabetes 3. Osteopenia PSH 1. Cataract surgery 2. section 3. Oral surgery Family history: Fatherblood clots, CVAfather, endometrial cancermother Social history: Retired. Denies tobacco,drug use. 1-2 glasses of wine per day. Principal Diagnosis non cardiac chest pain Discharge Exam Constitutional well developed and average body habitus Eyes no conjunctival abnormality and no scleral abnormality Neck normal visual inspection and trachea midline Respiratory normal respiratory effort; no respiratory distress Auscultation: lungs clear to auscultation bilaterally Cardiovascular RRR, no murmur, no edema Gastrointestinal (Abdomen) normal bowel sounds, soft, nontender, no hepatosplenomegaly Musculoskeletal no cyanosis or clubbing, extremities motor strength 5/5 Discharge Data Allergies Allergy/AdvReac Type Severity Reaction Status Date / Time rabbit dander Allergy Sneezing Verified 06/01/18 04:08 corn husk Allergy Sneezing Uncoded 06/01/18 04:08 Consultations 06/01/18 04:25 ED Decision to Admit Stat 06/01/18 06:37 Consult Cardiology Routine Ordered Studies 06/01/18 04:09 CT angio chest PE protocol Stat Hospital Course (1) Unstable angina: 68-year-old female PMH T2DM who presents with chest pain, says she awoke from sleep at 2 AM with left-sided pain in her chest that radiated to her left neck and shoulder blade. Characterizes it as a pressure, like a charley horse. Lasted at least 1 hour. Constant. Made worse with deep breathing. Denies dyspnea on exertion, chest pain with exertion, syncope, diaphoresis. Patient is an avid hiker and exercises regularly. Patient has well-controlled diabetes , last A1c was less than 6. Family history positive for clots/PE and CVA in father. ED course: Nitroglycerin paste Reversible lateral t wave changes noted on repeat EKG. Also given aspirin 324 mg p.o. Initial troponin negative. H&H normal, BMP unremarkable CTA of the chest shows no pulmonary embolism or effusion. Old granulomatous in the right lobe. 10 mm nodule in the thyroid, recommend outpatient ultrasound follow-up. -CTA ruled out PE -Consult cardiology, reviewed resting echo, and two negative troponins, proceeded to stress portion of echo which was normal pt will be d/c'd I asked pt if she wanted to have no med changes and will follow up with pcp DVT ppx: Heparin drip low-dose no bolus begun CODE STATUS: Full code DISPO: Telemetry Thyroid nodule -10 mm, incidental finding on CTA of the chest -Recommend outpatient ultrasound follow-up nonurgently Type 2 diabetes -Diagnosed in 2011, on metformin -Last A1c in the fall was less than 6. -Hold home metformin 500 mg daily restart on 06/03/18 -ISS (2) Type 2 diabetes mellitus: (3) Chest pain: (4) Thyroid nodule: Total Time Total Time Spent Total Time Spent (In Minutes): greater than 30 minutes were required to prepare discharge Discharge Plan Discharge Items Patient Disposition: Home - Self-Care Reason For Visit: UNSTABLE ANGINA Discharge Diagnosis: non cardiac chest pain Discharge Goals: Decrease discomfort Activity: Resume your previous activity Non-emergency contact: Primary Care Provider Call non-emergency contact if: you have any medication questions Diet: Carb Consistent or DM2 Addtl Provider Instructions: please follow up with your primary care provider if your pain does not resolve please do not take any ibuprofen or naproxen before 6 pm on the day of discharge Please do not restart your metformin or glucophage until wednesday am Prescriptions: Continue metformin 500 mg tablet 500 mg PO DAILY RF: 0 cyanocobalamin (vitamin B-12) [Vitamin B-12] 1,000 mcg Tablet 1,000 mcg PO DAILY RF: 0 calcium carbonate [Calcium 600] 600 mg calcium (1,500 mg) Tablet 600 mg PO DAILY RF: 0 Stand-Alone Forms: [facility] Discharge Orders: Discharge Order (Routine); Ordered 06/01/18 Ordered By: Ralph Alejandra Admission Data Admit Date/Time: 06/01/18 05:47 Attending Provider: Ralph Alejandra Admit Provider: Zhanna Smallwood Primary Care Provider: Christian Grayson V. Other Providers: Gareth Singleton ; Merritt Merino Service: Telemetry Other Interventions: Discharge Summary Assessment (RN) Last Done: 06/01/18 13:55 DC Date/Time DO NOT enter until pt leaves facility: 06/01/18 14:20
== END 2018-06-01 14:20 | disposition home or self-care (01) | DRG 311 ==
LOC: ED 02:52 → 2S 05:47 → SUATTDRO 05:47 → 2S 06:15